=== PATIENT | male | born 1950 | race Caucasian/White ===

== ENCOUNTER 2017-05-05 09:11 | Day surgery (SDC) | payer OTHER ==
[2017-05-05] VITALS (540 sets, daily range): BP systolic 142–201; BP diastolic 34–111; PULSE 44–68; TEMP 97–97.6; O2SAT 85–98
[~2017-05-05] VITALS: Ht 177.8 cm; Wt 87.9 kg
[~2017-05-05 09:11] MED LIST: ALDACTONE 25MG25 M1 PO; ASPIRIN 81M81 MG/TA2 PO; CEPHALEXIN500 M1 PO; CORDARONE200 MG/TAB PO; COREG 25MG25 MG/TAB PO; COZAAR 50MG50 MG/TAB PO; FLOMAX 0.40.4 MG/CAP PO; GLUCOSAMINE & C1 CA1 PO; LIPITOR 80MG80 MG PO; LOPRESSOR 225 MG/TAB PO; MEXITIL 150MG150 MG PO; MSM PO; NITROSTAT0.4 MG/TAB SL; NORCO 325 MG-51 TAB PO; NORVASC 5MG5 MG/TAB PO; OSTEO-BI-FLEX 21 TAB PO; PLAVIX 75MG TAB75 MG PO; PRINIVIL20 MG PO; PRINZIDE 12.5 M1 TA1 PO; TYLENOL EXTRA500 M1 PO; ZESTRIL 20MG TA20 MG PO; ZYRTEC 10MG10 MG PO
[2017-05-05 09:54] LABS: HEMATOCRIT 45.6 % (42.0-52.0); HEMOGLOBIN 15.9 g/dl (13.5-18.0); MEAN CELL VOLUME 87 fl (80.0-100.0); MEAN CORPUSCULAR HEMOGLOBIN 30 pg (27.0-31.0); MEAN CORPUSCULAR HGB CONC 35 g/dl (33.0-37.0); MEAN PLATELET VOLUME 10.2 fl (7.4-10.4); PLATELET COUNT 221 K/mm3 (130-400); RED BLOOD COUNT 5.23 M/mm3 (4.20-5.60); REDCELL DISTRIBUTION WIDTH-CV 12.4 % (11.5-14.5); WHITE BLOOD COUNT 8.4 K/mm3 (4.8-10.8)
[2017-05-05 09:59] LABS: PROTHROMBIN TIME 11.3 SECONDS (9.7-12.8)
[2017-05-05 10:05] LABS: CALCIUM 9.4 mg/dL (8.4-10.2); CREATININE, serum 0.96 mg/dL (0.66-1.25); POTASSIUM 4.3 mmol/L (3.4-5.0)
[2017-05-05] MEDS ORDERED: PERCOCET 325 MG1 TA2 PO (10:09)
[2017-05-06] VITALS (512 sets, daily range): BP systolic 143–183; BP diastolic 82–99; PULSE 50–71; TEMP 97.2; O2SAT 90–98
[2017-05-06 04:53] LABS: HEMATOCRIT 43.3 % (42.0-52.0); HEMOGLOBIN 14.2 g/dl (13.5-18.0); MEAN CELL VOLUME 90 fl (80.0-100.0); MEAN CORPUSCULAR HEMOGLOBIN 30 pg (27.0-31.0); MEAN CORPUSCULAR HGB CONC 33 g/dl (33.0-37.0); MEAN PLATELET VOLUME 10.5 fl (7.4-10.4); PLATELET COUNT 196 K/mm3 (130-400); RED BLOOD COUNT 4.82 M/mm3 (4.20-5.60); REDCELL DISTRIBUTION WIDTH-CV 12.4 % (11.5-14.5)
[2017-05-06 05:21] LABS: CALCIUM 8.8 mg/dL (8.4-10.2); CREATININE, serum 0.98 mg/dL (0.66-1.25)
[2017-05-06] MEDS ORDERED: BRILINTA90 MG PO (11:32)
[2017-05-06] MEDS ORDERED: LOPRESSOR 550 MG/TAB PO (11:34)
[2017-05-06] MEDS ORDERED: CRESTOR40 MG PO (11:35)
== END 2017-05-06 12:15 | disposition home or self-care (01) ==
LOC: COL.CAR 09:11 → ICU 13:24 → COL.CAR 05-06 12:15
PROVIDERS: Internal Medicine Interventional Cardiology
DX: I25.119 Atherosclerotic heart disease of native coronary artery with unspecified angina pectoris (principal); I10 Essential (primary) hypertension; Z95.5 Presence of coronary angioplasty implant and graft; Z79.01 Long term (current) use of anticoagulants; J44.9 Chronic obstructive pulmonary disease, unspecified; E78.5 Hyperlipidemia, unspecified; I25.2 Old myocardial infarction; Z87.891 Personal history of nicotine dependence; Z80.9 Family history of malignant neoplasm, unspecified
CPT/HCPCS: OP; C9600; C9601; J0583; J2250; J3010

== ENCOUNTER 2018-04-13 11:11 | Day surgery (SDC) | payer MEDICARE, OTHER ==
[2018-04-13] VITALS (199 sets, daily range): BP systolic 125–164; BP diastolic 85–116; PULSE 42–51; TEMP 97.4–98.7; O2SAT 91–97
[~2018-04-13] VITALS: Ht 177.8 cm; Wt 84.8 kg
[~2018-04-13 11:11] MED LIST changes: +BRILINTA90 MG PO; +CRESTOR40 MG PO; +LOPRESSOR 550 MG/TAB PO; +PERCOCET 325 MG1 TA2 PO
[2018-04-13 11:54] LABS: HEMATOCRIT 43.5 % (42.0-52.0); HEMOGLOBIN 14.9 g/dl (13.5-18.0); MEAN CELL VOLUME 88 fl (80.0-100.0); MEAN CORPUSCULAR HEMOGLOBIN 30 pg (27.0-31.0); MEAN CORPUSCULAR HGB CONC 34 g/dl (33.0-37.0); MEAN PLATELET VOLUME 10.3 fl (7.4-10.4); PLATELET COUNT 202 K/mm3 (130-400); RED BLOOD COUNT 4.97 M/mm3 (4.20-5.60); REDCELL DISTRIBUTION WIDTH-CV 12.4 % (11.5-14.5)
[2018-04-13 12:07] LABS: CALCIUM 9.4 mg/dL (8.4-10.2); CREATININE, serum 1.15 mg/dL (0.66-1.25); POTASSIUM 3.9 mmol/L (3.4-5.0)
[2018-04-13] MEDS ORDERED: STOOL SOFTENER100 M2 PO (12:17)
[2018-04-13] MEDS ORDERED: ADVIL PM 38 MG-1 TAB PO (12:18)
[2018-04-13] MEDS ORDERED: MICROZIDE12.5 MG PO (12:19)
[2018-04-13 12:29] LABS: PROTHROMBIN TIME 11.5 SECONDS (9.7-12.8)
[2018-04-13] MEDS ORDERED: BRILINTA90 MG PO ×2 (14:28→14:33)
[2018-04-13] MEDS ORDERED: NITROSTAT0.4 MG/TAB SL (14:28)
[2018-04-13] MEDS ORDERED: ASPIRIN 81M81 MG/TA2 PO (14:29)
[2018-04-13] MEDS ORDERED: PRINIVIL20 MG PO (14:29)
[2018-04-13] MEDS ORDERED: LOPRESSOR100 MG PO (14:29)
[2018-04-13] MEDS ORDERED: ASPI325T6 PO (14:31)
[2018-04-13] MEDS ORDERED: NS INT FLUSH 1010 ML IV ×2 (14:32)
[2018-04-13] MEDS ORDERED: COLACE 100100 MG/CAP PO (14:32)
[2018-04-13] MEDS ORDERED: HCTZ12.5TAB PO (14:32)
[2018-04-13] MEDS ORDERED: ASPIRIN E.C. 8181 MG PO (14:33)
== END 2018-04-13 20:59 | disposition home or self-care (01) ==
LOC: COL.CAR 11:11 → ICU 14:26 → COL.CAR 20:59
PROVIDERS: Internal Medicine Interventional Cardiology
DX: I25.10 Atherosclerotic heart disease of native coronary artery without angina pectoris (principal); R07.9 Chest pain, unspecified; I25.2 Old myocardial infarction; R55 Syncope and collapse; R00.1 Bradycardia, unspecified; J44.9 Chronic obstructive pulmonary disease, unspecified; I10 Essential (primary) hypertension; E78.5 Hyperlipidemia, unspecified; Z79.899 Other long term (current) drug therapy; Z79.82 Long term (current) use of aspirin
CPT/HCPCS: OP; C9600; J0583; J1644; J2250; J3010

== ENCOUNTER 2020-10-23 11:12 | Day surgery (SDC) | payer MEDICARE, OTHER ==
[~2020-10-23] VITALS: Ht 177.8 cm; Wt 84.4 kg
[2020-10-23] VITALS (63 sets, daily range): BP systolic 126–176; BP diastolic 74–146; PULSE 43–104; TEMP 98.2; O2SAT 83–100
[~2020-10-23 11:12] MED LIST changes: +ADVIL PM 38 MG-1 TAB PO; +ASPI325T6 PO; +ASPIRIN E.C. 8181 MG PO; +COLACE 100100 MG/CAP PO; +HCTZ12.5TAB PO; +LOPRESSOR100 MG PO; +MICROZIDE12.5 MG PO; +NS INT FLUSH 1010 ML IV; +STOOL SOFTENER100 M2 PO
[2020-10-23 13:01] LABS: CALCIUM 9.7 mg/dL (8.4-10.2); CREATININE, serum 1.15 (0.66-1.25)
[2020-10-23 13:02] LABS: HEMATOCRIT 43.2 % (42.0-52.0); MEAN CELL VOLUME 89 fl (80.0-100.0); MEAN CORPUSCULAR HEMOGLOBIN 31 pg (27.0-31.0); MEAN CORPUSCULAR HGB CONC 35 g/dl (33.0-37.0); MEAN PLATELET VOLUME 10.1 fl (7.4-10.4); PLATELET COUNT 184 K/mm3 (130-400); RED BLOOD COUNT 4.85 M/mm3 (4.20-5.60); REDCELL DISTRIBUTION WIDTH-CV 13.1 % (11.5-14.5)
[2020-10-23 13:07] LABS: PROTHROMBIN TIME 11.7 SECONDS (9.7-12.8)
[2020-10-23 13:10] LABS: PARTIAL THROMBOPLASTIN TIME 32.4 SECONDS (26.0-37.0)
[2020-10-23] MEDS ORDERED: ZESTRIL 20MG TA20 MG PO (13:14)
[2020-10-23] MEDS ORDERED: ASPIRIN 81M81 MG/TA2 PO (13:15)
[2020-10-23] MEDS ORDERED: CRESTOR40 MG PO (13:19)
[2020-10-23] MEDS ORDERED: IMDUR 30MG30 MG/TAB PO (13:19)
[2020-10-23] MEDS ORDERED: TYLENOL PM EXTR1 TA1 PO (13:19)
[2020-10-23] MEDS ORDERED: BRILINTA60 MG PO (13:20)
[2020-10-23] MEDS ORDERED: TOPROL XL100 MG PO (13:21)
--- NOTE | 2020-10-23 18:17 | NUR ---
Discharge instructions given to pt.Pt verbalizes understanding.INt removed,catheter tip intact.Dressing to right wrist observed clean,dry,intact and soft.
== END 2020-10-23 18:30 | disposition home or self-care (01) ==
LOC: COL.CAR
PROVIDERS: Internal Medicine Interventional Cardiology
DX: I25.10 Atherosclerotic heart disease of native coronary artery without angina pectoris (principal); T82.855A Stenosis of coronary artery stent, initial encounter; E78.5 Hyperlipidemia, unspecified; I10 Essential (primary) hypertension; J44.9 Chronic obstructive pulmonary disease, unspecified; E21.3 Hyperparathyroidism, unspecified; Z79.01 Long term (current) use of anticoagulants; Z79.82 Long term (current) use of aspirin; Z79.899 Other long term (current) drug therapy; Z88.8 Allergy status to other drugs, medicaments and biological substances
CPT/HCPCS: C1769; J1644; Q9967